=== PATIENT | female | born 1955 | race Caucasian/White ===

== ENCOUNTER 2017-05-01 11:29 | Emergency (ER) | payer OTHER, SELFPAY ==
[2017-05-01 11:53] LABS: #Eosinphils 0.1 thou/uL (0.0-0.7); #Lymphocytes 0.8 thou/uL (1.20-3.40); #Monocytes 0.4 thou/uL (0.11-0.59); #Neutrophils 3.8 thou/uL (1.40-6.50); %Basophils 0.9 % (0.0-1.0); %Eosinophils 2.1 % (0.0-10.0); %Lymphocytes 15.4 % (21.0-51.0); %Monocytes 8.1 % (0.0-10.0); %Neutrophils 73.4 % (42.0-75.0); Hemoglobin 14.2 g/dL (12.0-16.0); Mean Corpuscular HGB CONC 32.3 g/dL (32.0-36.0); Mean Corpuscular Hemoglobin 30.3 pg (27.0-31.0); Mean Corpuscular Volume 93.7 fl (81.0-99.0); Mean Platelet Volume 7.2 fL (7.4-10.4); Platelet Count 281 thou/uL (130-400); RBC Distribution Width 12.3 % (11.5-14.5); Red Blood Cell (RBC) Count 4.69 mill/uL (4.20-5.40); White Blood Cell (WBC) Count 5.2 thou/uL (4.8-10.8)
--- NOTE | 2017-05-01 12:10 | RAD ---
PORTABLE CHEST: HISTORY: Chest pain. FINDINGS: Heart size and mediastinum are within normal limits. The lungs are clear of infiltrates. No signifi cant bony findings. A small focus of calcification adjacent to the right humeral head is probably re lated to some calcific tendinitis. IMPRESSION: No active intrathoracic disease. POS: [facility]
[2017-05-01 12:16] LABS: ALT (SGPT) 14 U/L (8-55); AST (SGOT) 17 U/L (5-34); Albumin 4.2 g/dL (3.4-4.8); Alkaline Phosphatase 105 U/L (40-150); Anion Gap 10 mmol/L (10-20); BUN (Urea Nitrogen) 15 mg/dL (9.8-20.1); Bilirubin, Total 0.2 mg/dL (0.2-1.2); CK (CPK) 66 U/L (29-168); Calc. Creatinine Clearance 0 mL/min (70-130); Calcium 9.4 mg/dL (7.8-10.44); Carbon Dioxide 28 mmol/L (23-31); Chloride 103 mmol/L (98-107); Estimated GFR-MDRD 75; Globulin 2.3 g/dL (2.4-3.5); Glucose 90 mg/dL (80-115); Lipase 14 U/L (8-78); Potassium 4.2 mmol/L (3.5-5.1); Protein, Total 6.5 g/dL (6.0-8.3); Sodium 137 mmol/L (136-145)
[2017-05-01 12:23] LABS: CKMB 4.2 ng/mL (0-6.6); Troponin I Less than 0.010 ng/mL (< 0.028)
[2017-05-01] MEDS ORDERED: Acetaminophen 500 MG TAB ONE (13:09)
[2017-05-01 14:44] LABS: Troponin I Less than 0.010 ng/mL (< 0.028)
--- NOTE | 2017-05-01 15:08 | ULT ---
VENOUS DOPPLER ULTRASOUND OF THE RIGHT LOWER EXTREMITY: HISTORY: Right lower extremity pain and edema. TECHNIQUE: Perez scale ultrasound with color flow and spectral Doppler imaging of the deep venous system of the r ight lower extremity is performed. FINDINGS: There is good flow, compression, and augmentation noted in the right common femoral, femoral, deep fe moral, popliteal, posterior tibial and greater saphenous veins. IMPRESSION: No evidence of deep vein thrombosis in the right lower extremity. POS: [facility]
--- NOTE | 2017-05-04 17:34 | EKG ---
Test Reason : CHEST PAIN Blood Pressure : / mmHG Vent. Rate : 075 BPM Atrial Rate : 075 BPM P-R Int : 126 ms QRS Dur : 114 ms QT Int : 372 ms P-R-T Axes : 044 -15 056 degrees QTc Int : 415 ms Normal sinus rhythm RSR' or QR pattern in V1 suggests right ventricular conduction delay Minimal voltage criteria for LVH, may be normal variant Inferior infarct , age undetermined Abnormal ECG Confirmed by TRISTIAN WATERS, FINN ([id number]), newspaper or periodical editor DEENA PORTILLO ([id number]) on 05/04/2017 5:33:47 PM Referred By: Confirmed By:FINN LUBIN MD
== END 2017-05-01 15:44 | disposition home or self-care (01) ==
LOC: ERS 11:29
DX: R07.2 Precordial pain (principal); R60.0 Localized edema; G40.909 Epilepsy, unspecified, not intractable, without status epilepticus; F41.9 Anxiety disorder, unspecified; F32.9 Major depressive disorder, single episode, unspecified; Z79.899 Other long term (current) drug therapy
CPT/HCPCS: 36415; 71045; 80053; 82553; 83690; 84484; 85025; 93005; 94760

== ENCOUNTER 2018-08-03 11:38 | Inpatient (IN) | payer SELFPAY ==
[2018-08-03] MEDS ORDERED: Ondansetron PF 4 MG/2 ML Vial ONE (11:55)
[2018-08-03] MEDS ORDERED: Lorazepam 2 MG/ML VIAL ONE (11:55)
--- NOTE | 2018-08-03 12:08 | RAD ---
XR Chest 1 View History: Fever Comparison: Chest radiograph May 01, 2017 Findings: Lungs are clear. No pneumothorax or effusion. Cardiac silhouette and mediastinal contours a re within normal limits. Impression: No acute thoracic abnormality.
[2018-08-03 12:42] LABS: Bilirubin Negative (Negative); Blood, Urine Small (Negative); Clarity CLEAR (Clear); Glucose, Urine (Dipstick) Negative (Negative); Leukocyte Small (Negative); Nitrite Positive (Negative); Protein, Urine (Dipstick) Negative (Neg-Trace); Specific Gravity, Urine 1.012 (1.002-1.036); Urobilinogen 0.2 mg/dL (0.2-1.0)
[2018-08-03 12:45] LABS: Bacteria/HPF 4+ HPF (None Seen); Hyaline Casts/LPF 0-3 HYALINE CAST LPF (0-3 Hyaline); Pathc Cast-AUWi Flag 0.13 (0-2.49); Squamous Epithelial 0-3 HPF (0-3)
[2018-08-03 12:48] LABS: Band 26 % (5-11); Hemoglobin 14.1 g/dL (12.0-16.0); Lymphocytes 9 % (21-51); MDiff Complete? YES; Mean Corpuscular HGB CONC 33.4 g/dL (32.0-36.0); Mean Corpuscular Hemoglobin 30.3 pg (27.0-31.0); Mean Corpuscular Volume 90.8 fL (78.0-98.0); Mean Platelet Volume 7.3 fL (7.4-10.4); Neutrophil 65 % (42-75); Platelet Count 240 thou/uL (130-400); RBC Distribution Width 12.4 % (11.5-14.5); Red Blood Cell (RBC) Count 4.64 mill/uL (4.20-5.40); White Blood Cell (WBC) Count 6.8 thou/uL (4.8-10.8)
[2018-08-03 12:55] LABS: Anion Gap 17 mmol/L (10-20); BUN (Urea Nitrogen) 14 mg/dL (9.8-20.1); Calc. Creatinine Clearance 0 mL/min (70-130); Carbon Dioxide 22 mmol/L (23-31); Chloride 105 mmol/L (98-107); Estimated GFR-MDRD 67; Potassium 3.8 mmol/L (3.5-5.1); Sodium 140 mmol/L (136-145)
[2018-08-03 12:56] LABS: ALT (SGPT) 16 U/L (8-55); AST (SGOT) 17 U/L (5-34); Alkaline Phosphatase 136 U/L (40-150); Bilirubin, Total 0.5 mg/dL (0.2-1.2); CK (CPK) 49 U/L (29-168); Calcium 8.9 mg/dL (7.8-10.44); Globulin 2.1 g/dL (2.4-3.5); Glucose 107 mg/dL (80-115); Lipase 9 U/L (8-78); Protein, Total 6.1 g/dL (6.0-8.3)
[2018-08-03] MEDS ORDERED: Sodium Chloride 0.9% 1,000 ML IV SCH (13:00)
[2018-08-03] MEDS ORDERED: cefTRIAXone\\ROCEPHIN 1 GM VIAL ONE (13:01)
[2018-08-03] MEDS ORDERED: metroNIDAZOLE 500 MG/100 ML BAG ONE (14:55)
[2018-08-03 16:00] VITALS: BMI 27.8
[2018-08-03] MEDS ORDERED: hydrALAZINE 20 MG/ML VIAL SLOW IVP PRN (16:43)
[2018-08-03] MEDS ORDERED: Lorazepam 2 MG/ML VIAL SLOW IVP PRN (16:43)
[2018-08-03 16:53] LABS: Lactic Acid 1.6 mmol/L (0.5-2.2)
[2018-08-03] MEDS: Acetaminophen 325 MG TAB PO PRN ×2 (17:12→22:28)
[2018-08-03] MEDS: Sodium Chloride 0.9% 1,000 ML IV SCH (17:14)
[2018-08-03] MEDS: Famotidine 20 MG TAB PO SCH (20:21)
[2018-08-03] MEDS ORDERED: carBAMazepine 200 MG TAB PO SCH ×2 (21:00→21:15)
[2018-08-03] MEDS ORDERED: metroNIDAZOLE 500 MG in Premix Bag 1 BAG IVPB SCH (23:00)
--- NOTE | 2018-08-04 00:05 | HP ---
PRIMARY CARE PHYSICIAN: Through the [facility]. CHIEF COMPLAINT: Feeling bad and having fever. HISTORY OF PRESENT ILLNESS: Ms. Marvin is a pleasant 63-year-old female, who has a history of seizure disorder as well as allergic rhinitis. She was in her usual state of health until Saturday. She says she started feeling nauseated and was having some diarrhea off and on. During this time, she was not having any abdominal pain. She says that Saturday she kind of took it easy and just tried to stay at home and does not mention many symptoms on that day, but then on early Saturday morning and late Saturday night, she started having shivering and shaking all over. She said she felt really bad. She also started vomiting several times, but no hematemesis. She says that it was hard to breathe. It would hurt when she tried to breathe and she was breathing shallow. She also had a very bad headache and noticed pain in her back as well. For this reason, she went to the emergency room and she was found to be febrile with a temperature of 101. She also had quite a few bands on exam in her CBC and findings consistent with a urinary tract infection, and she is being admitted for UTI with sepsis. Currently, a lot of her symptoms have resolved. She admits having have urinary frequency, urgency, and some mild dysuria. REVIEW OF SYSTEMS: CONSTITUTIONAL: There has been subjective fever as well as chills, but no night sweats. No weight loss. HEENT: She has had some headache, but no visual changes. No sore throat or rhinorrhea. No neck pain. No adenopathy. PULMONARY: No hemoptysis. No cough. No wheezing. CARDIOVASCULAR: No chest pain. No shortness of breath. No PND. No orthopnea. GASTROINTESTINAL: As the history of present illness. GENITOURINARY: Also, as a history of present illness. MUSCULOSKELETAL: No muscle pains, weakness, or joint pains. NEUROLOGIC: No focal weakness or numbness. No seizures. PSYCHIATRIC: No symptoms of anxiety or depression. SKIN AND INTEGUMENT: No skin changes. No rash. ENDOCRINE: No heat or cold intolerance. PAST MEDICAL HISTORY: Significant for seizure disorder, generalized anxiety, allergic rhinitis, rectal prolapse, and she says she does not have a history of WPW or Khfne-Hjkgubxwo-Akyym syndrome; however, this is in her records. PAST SURGICAL HISTORY: She has had a bladder suspension surgery about 20 years ago, hysterectomy, history of a ruptured spleen, history of ear surgery, and thyroid nodule removal. ALLERGIES: NO KNOWN DRUG ALLERGIES. SOCIAL HISTORY: She is . She has 2 children. She is a nonsmoker and nondrinker. FAMILY HISTORY: Significant for seizure disorder in her father and sister. CURRENT MEDICATIONS: 1. Tegretol 200 mg twice daily as well as Celexa. 2. Aspirin 81 mg daily and she says she uses a laxative as needed. PHYSICAL EXAMINATION: GENERAL: She is alert and oriented. She appears to be in no acute distress. VITAL SIGNS: Blood pressure was 100/63, heart rate 99, respiratory rate of 18, and temperature is 98.5. HEENT: Pupils are equal, round, and reactive to light and accommodation. Throat, there is no erythema. No exudates. NECK: No adenopathy. No bruits. LUNGS: Clear to auscultation. There is no wheezing. No rales. No rhonchi. CARDIOVASCULAR: She has a normal S1 and S2. I did not appreciate an S3 or S4. No murmurs, clicks, or rubs. ABDOMEN: Soft. She did have some mild tenderness in the right lower quadrant. There is no rebound. No guarding. No organomegaly. EXTREMITIES: There is no clubbing or cyanosis. No edema. NEUROLOGIC: Her cranial nerves 2 through 12 are grossly intact. Her muscle strength is 5/5 in both upper and lower extremities. SKIN AND INTEGUMENT: No skin changes. No rash. LABORATORY DATA: Lab results: Her white blood cell count 6.8, hemoglobin 14.1, hematocrit is 42.1, and platelet count is 240. There are 26 bands. Sodium 140, potassium 3.8, chloride is 105, CO2 is 22, BUN of 14, creatinine 0.86, and glucose is 107. Lactic acid is 4.0. Urinalysis, nitrite positive and 4+ bacteria. ASSESSMENT: This is a 63-year-old female, who presents with fever, bandemia, elevated lactic acid, and urine findings suggestive of urinary tract infection. She has urosepsis: 1. For urinary tract infection with sepsis, she will be admitted to the medical floor, full admission due to her sepsis criteria, started on IV Rocephin and Levaquin, and we will follow up on her culture results and tailor antibiotics. We will also place her on IV fluid resuscitation. 2. Seizure disorder. We will continue Tegretol as well as p.r.n. Ativan and place her on seizure precautions. 3. Deep venous thrombosis and gastrointestinal prophylaxis, both will be provided. Job ID: [id number]
[2018-08-04] MEDS: Sodium Chloride 0.9% 1,000 ML IV SCH ×2 (04:54→18:37)
[2018-08-04] MEDS: Acetaminophen 325 MG TAB PO PRN ×2 (04:54→09:57)
[2018-08-04 05:29] LABS: #Lymphocytes 0.2 thou/uL (1.20-3.40); #Monocytes 0.1 thou/uL (0.11-0.59); #Neutrophils 6.1 thou/uL (1.40-6.50); %Eosinophils 0.1 % (0.0-10.0); %Lymphocytes 3.8 % (21.0-51.0); %Monocytes 1.7 % (0.0-10.0); %Neutrophils 94.4 % (42.0-75.0); Hemoglobin 11.5 g/dL (12.0-16.0); Mean Corpuscular HGB CONC 33.6 g/dL (32.0-36.0); Mean Corpuscular Hemoglobin 30.9 pg (27.0-31.0); Mean Corpuscular Volume 91.9 fL (78.0-98.0); Mean Platelet Volume 7.7 fL (7.4-10.4); Platelet Count 168 thou/uL (130-400); RBC Distribution Width 12.6 % (11.5-14.5); Red Blood Cell (RBC) Count 3.72 mill/uL (4.20-5.40); White Blood Cell (WBC) Count 6.4 thou/uL (4.8-10.8)
[2018-08-04 05:52] LABS: Anion Gap 9 mmol/L (10-20); BUN (Urea Nitrogen) 13 mg/dL (9.8-20.1); Calc. Creatinine Clearance 85 mL/min (70-130); Calcium 7.7 mg/dL (7.8-10.44); Carbon Dioxide 23 mmol/L (23-31); Chloride 109 mmol/L (98-107); Estimated GFR-MDRD 68; Glucose 108 mg/dL (80-115); Potassium 3.8 mmol/L (3.5-5.1); Sodium 137 mmol/L (136-145)
[2018-08-04] MEDS: Enoxaparin Sodium 40 MG/0.4 ML SYRINGE SC SCH (08:06)
[2018-08-04] MEDS: Famotidine 20 MG TAB PO SCH ×2 (08:06→20:34)
[2018-08-04] MEDS: carBAMazepine 200 MG TAB PO SCH ×2 (08:06→16:42)
[2018-08-04] MEDS: cefTRIAXone\\ROCEPHIN 1 GM in Sodium Chloride 0.9% 100 ML IVPB SCH (12:03)
--- NOTE | 2018-08-04 15:55 | PDOC.PN ---
- Subjective Encounter Start Date: 08/04/18 Encounter Start Time: 14:30 Ms. Marvin was seen today in follow-up of UTI with sepsis. She has continued to have fever off and on, once as high as 102. She does not appear toxic. She does not ahve amny new complaints. - Objective Resuscitation Status - Order Detail: 08/03/18 16:39 Resuscitation Status Routine Resuscitation Status: FULL: Full Resuscitation MAR Reviewed: Yes Vital Signs & Weight: Vital Signs (12 hours) Temp Pulse Resp BP Pulse Ox 08/04/18 14:31 98.6 F 08/04/18 11:46 102.7 F H 84 20 110/58 L 99 08/04/18 11:01 102 F H 08/04/18 09:55 100.1 F H 08/04/18 08:06 100 08/04/18 08:00 99.3 F 73 18 112/68 100 08/04/18 04:00 99.6 F 92 20 116/73 96 Weight Admit Weight 172 lb 5 oz Weight 172 lb 5 oz I&O: 08/03/18 08/04/18 08/05/18 06:59 06:59 06:59 Intake Total 240 Balance 240 Result Diagrams: 08/04/18 04:15 08/04/18 04:15 Phys Exam - Physical Examination HEENT: PERRLA Respiratory: no wheezing, no rales, no rhonchi, clear to auscultation bilateral Cardiovascular: RRR, no significant murmur, no rub Gastrointestinal: soft, non-tender, no distention, positive bowel sounds Musculoskeletal: no edema, pulses present Dx/Plan (1) UTI (urinary tract infection) Status: Acute (2) Sepsis Code(s): A41.9 - SEPSIS, UNSPECIFIED ORGANISM Status: Acute (3) Seizure disorder Code(s): G40.909 - EPILEPSY, UNSP, NOT INTRACTABLE, WITHOUT STATUS EPILEPTICUS Status: Suspected Comment: No specific seizure activity noted, pt with shaking episode alert and responding during the entire episode - Plan * UTI with sepsis- continue Rocephin and Levaquin * Urine and blood cultures are pending * Flu- screen was negative * Seizure disorder- stable.
[2018-08-04] MEDS ORDERED: Gentamicin Sulfate 330 MG in Sodium Chloride 0.9% 100 ML IVPB SCH (17:45)
[2018-08-05 06:03] LABS: #Lymphocytes 0.4 thou/uL (1.20-3.40); #Monocytes 0.4 thou/uL (0.11-0.59); %Basophils 0.7 % (0.0-1.0); %Eosinophils 1.2 % (0.0-10.0); %Lymphocytes 14.9 % (21.0-51.0); %Monocytes 12.4 % (0.0-10.0); %Neutrophils 70.8 % (42.0-75.0); Hemoglobin 11.2 g/dL (12.0-16.0); Mean Corpuscular HGB CONC 33.5 g/dL (32.0-36.0); Mean Corpuscular Hemoglobin 30.8 pg (27.0-31.0); Mean Corpuscular Volume 91.9 fL (78.0-98.0); Mean Platelet Volume 7.6 fL (7.4-10.4); Platelet Count 132 thou/uL (130-400); RBC Distribution Width 12.6 % (11.5-14.5); Red Blood Cell (RBC) Count 3.62 mill/uL (4.20-5.40); White Blood Cell (WBC) Count 2.9 thou/uL (4.8-10.8)
[2018-08-05 06:25] LABS: Anion Gap 10 mmol/L (10-20); BUN (Urea Nitrogen) 11 mg/dL (9.8-20.1); Calc. Creatinine Clearance 90 mL/min (70-130); Calcium 7.8 mg/dL (7.8-10.44); Carbon Dioxide 21 mmol/L (23-31); Chloride 111 mmol/L (98-107); Estimated GFR-MDRD 73; Glucose 105 mg/dL (80-115); Potassium 3.6 mmol/L (3.5-5.1); Sodium 138 mmol/L (136-145)
[2018-08-05] MEDS: Enoxaparin Sodium 40 MG/0.4 ML SYRINGE SC SCH (08:25)
[2018-08-05] MEDS: Sodium Chloride 0.9% 1,000 ML IV SCH ×2 (08:25→20:42)
[2018-08-05] MEDS: Famotidine 20 MG TAB PO SCH ×2 (08:26→20:40)
[2018-08-05] MEDS: carBAMazepine 200 MG TAB PO SCH ×2 (08:26→16:48)
[2018-08-05] MEDS: cefTRIAXone\\ROCEPHIN 1 GM in Sodium Chloride 0.9% 100 ML IVPB SCH (12:23)
[2018-08-05] MEDS: MEROPENEM 1 GM/50 ML 1 GM in Premix Bag 1 BAG IVPB SCH ×2 (12:59→20:40)
[2018-08-05] MEDS ORDERED: Meropenem 1 GM in Sodium Chloride 0.9% 100 ML IVPB SCH (14:00)
--- NOTE | 2018-08-05 14:47 | PDOC.PN ---
- Subjective Encounter Start Date: 08/05/18 Encounter Start Time: 14:47 Ms. Marvin was seen today in follow-up of UTI with sepsis. She says she feels much better today - Objective Resuscitation Status - Order Detail: 08/03/18 16:39 Resuscitation Status Routine Resuscitation Status: FULL: Full Resuscitation MAR Reviewed: Yes Vital Signs & Weight: Vital Signs (12 hours) Temp Pulse Resp BP Pulse Ox 08/05/18 12:15 98.0 F 81 18 135/75 96 08/05/18 08:26 95 08/05/18 07:47 98.2 F 68 16 119/73 95 08/05/18 04:00 98.3 F 67 18 131/79 94 L Weight Admit Weight 172 lb 5 oz Weight 172 lb 5 oz I&O: 08/04/18 08/05/18 08/06/18 06:59 06:59 06:59 Intake Total 240 1328 Balance 240 1328 Result Diagrams: 08/05/18 05:22 08/05/18 05:22 Phys Exam - Physical Examination HEENT: PERRLA Respiratory: no wheezing, no rales, no rhonchi, clear to auscultation bilateral Cardiovascular: RRR, no significant murmur, no rub Gastrointestinal: soft, non-tender, no distention, positive bowel sounds Musculoskeletal: no edema, pulses present, edema present Dx/Plan (1) UTI (urinary tract infection) Status: Acute (2) Sepsis Code(s): A41.9 - SEPSIS, UNSPECIFIED ORGANISM Status: Acute (3) Seizure disorder Code(s): G40.909 - EPILEPSY, UNSP, NOT INTRACTABLE, WITHOUT STATUS EPILEPTICUS Status: Suspected Comment: No specific seizure activity noted, pt with shaking episode alert and responding during the entire episode - Plan * UTI with sepsis- blood culture is growing E. Coli which appears to be ESBL. 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 Will change her antibiotics to Meropenem and consult ID * Urine culture- I suspect this is the same organism * Seizure disorder- stable.
--- NOTE | 2018-08-05 18:58 | ULT ---
US Renal Bilateral STANDARD: 08/05/2018 5:11 PM CLINICAL HISTORY: Pyelonephritis and bacteremia. STUDY: Renal ultrasound COMPARISON: None. FINDINGS: Right kidney: Echogenicity: Normal. Masses/cysts: 5.4 cm cyst Hydronephrosis: None. Calcifications: None. Length: 10.4 cm Left kidney: Echogenicity: Normal. Masses/cysts: 2.0 cm cyst Hydronephrosis: None. Calcifications: None. Length: 9.1 cm Limited visualization of the urinary bladder is unremarkable. Bilateral ureteral jets are present. IMPRESSION: Bilateral renal cysts
--- NOTE | 2018-08-05 23:17 | CON ---
DATE OF CONSULTATION: 08/05/2018 REASON FOR CONSULTATION: Bacteremia. HISTORY OF PRESENT ILLNESS: 63-year-old with history of seizure activity, on Tegretol, who was well until Saturday when she noticed general malaise, lower abdominal pain, and marked increase in urinary frequency associated with chills. She then developed some dyspnea and headaches, was admitted. On arrival, temperature was 101.3 and she appeared anxious. The lungs and heart examination were normal. The abdomen was described as nontender. Skin was normal. Initial white cell count 6.8 with 26% bands. Chemistry was normal otherwise. Urinalysis with 4 to 6 wbc's and 4+ bacteria. Now, we have one set of blood cultures with E. coli and the organism appears to be an ESBL type of organism. Urine culture has a gram-negative yo, yet to be identified and susceptibility tested. Currently, she is looking well, appears in no distress. No headaches or visual symptoms, sore throat, odynophagia, or dysphagia. No shortness of breath. No abdominal pain anymore. No joint symptoms. 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 Not clear if she had a splenectomy or not. She has had a hysterectomy. ALLERGIES: NONE. SOCIAL HISTORY: , 2 children. Never smoker. Does not drink alcoholic beverages. FAMILY HISTORY: Seizure disorder. CURRENT MEDICATIONS: 1. Tylenol. 2. Tegretol. 3. Lovenox. 4. Pepcid. 5. Alprazolam. 6. Ativan. 7. Meropenem. PHYSICAL EXAMINATION: VITAL SIGNS: T-max 102.7. She has been afebrile since. BP 130/70, pulse 81, respirations 18, O2 saturation 96. SKIN: Normal peripheral IV access. She is voiding in the toilet. No lymphadenopathy. HEENT: Ocular movements conjugate. Sclerae white. Pupils are equal. Oral cavity normal. NECK: Supple. No jugular vein distention. LUNGS: Clear to auscultation and percussion. HEART: S1, S2. Regular rate. No S3 or S4. ABDOMEN: Soft, not distended. Question of bladder distention. No joint inflammatory activity. NEUROLOGIC: Nonfocal. Awake, alert, oriented, follows commands. LABORATORY DATA: White cell count is down to 2.9, hemoglobin 11.2, platelets 132 with 70% neutrophils. Sodium 138, creatinine 0.8. ASSESSMENT: 1. History of seizure disorder. 2. Pelvic floor insufficiency with rectal prolapse, bladder prolapse, and prior hysterectomy. 3. Likely invasive urinary tract infection with bacteremia, possible pyelonephritis. May have urinary retention. 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 This is usually secondary to urinary retention. Anytime the patient has more than 30 mL in the postvoid residual volumes, there is an associated increase in rates of UTIs. We will check a postvoid residual and check an ultrasound of her kidneys as well. She will need continuation of treatment at least for 10 days with IV antimicrobial therapy. Further intervention may be needed depending on findings in the postvoid residual ultrasound. The patient has not been sexually active in past many years, so I do not think there would be any other risk factor to address. Job ID: [id number] [facility]
[2018-08-06] MEDS: MEROPENEM 1 GM/50 ML 1 GM in Premix Bag 1 BAG IVPB SCH (05:46)
[2018-08-06] MEDS: Famotidine 20 MG TAB PO SCH ×2 (09:00→19:46)
[2018-08-06] MEDS: carBAMazepine 200 MG TAB PO SCH ×2 (09:00→17:40)
[2018-08-06] MEDS: Enoxaparin Sodium 40 MG/0.4 ML SYRINGE SC SCH (09:01)
[2018-08-06] MEDS ORDERED: Ondansetron PF 4 MG/2 ML Vial IVP PRN (13:01)
[2018-08-06] MEDS: Sodium Chloride 0.9% 1,000 ML IV SCH (13:33)
--- NOTE | 2018-08-06 18:33 | PDOC.PN ---
- Subjective Encounter Start Date: 08/06/18 Encounter Start Time: 18:25 Subjective: f/u for sepsis due to UTI with ESBL E. coli on Levaquin previously -: tx with Meropenem. - Objective Resuscitation Status - Order Detail: 08/03/18 16:39 Resuscitation Status Routine Resuscitation Status: FULL: Full Resuscitation MAR Reviewed: Yes Vital Signs & Weight: Vital Signs (12 hours) Temp Pulse Resp BP Pulse Ox 08/06/18 12:55 98.3 F 82 18 149/80 H 98 08/06/18 09:06 98 08/06/18 07:55 98.0 F 66 16 122/74 98 Weight Admit Weight 172 lb 5 oz Weight 172 lb 5 oz I&O: 08/05/18 08/06/18 08/07/18 06:59 06:59 06:59 Intake Total 1328 1204 1820 Balance 1328 1204 1820 Result Diagrams: 08/05/18 05:22 08/05/18 05:22 Additional Labs: Microbiology 08/04/18 14:00 Nasal swab Influenza Types A,B Direct EIA - Final 08/03/18 12:20 Venous blood - Right Hand Blood Culture - Final Escherichia coli 08/03/18 12:05 Urine clean catch Urine Culture - Final Escherichia coli 08/03/18 12:11 Venous blood - Left Arm Blood Culture - Preliminary NO GROWTH AT 48 HOURS Laboratory Tests 06/03/16 06/03/16 06/04/16 15:01 20:28 04:20 Phenytoin 35.3 H* 24.2 H 27.8 H 06/04/16 06/04/16 09:23 15:52 Phenytoin 24.8 H 25.6 H Radiology Reviewed by me: Yes (Renal sono - bilat cysts) Phys Exam - Physical Examination Constitutional: NAD HEENT: PERRLA, sclera anicteric, oral pharynx no lesions Neck: no nodes, no JVD, supple, full ROM Respiratory: no wheezing, no rales, no rhonchi, clear to auscultation bilateral S1, S2 Cardiovascular: RRR, no significant murmur, no rub, gallop Gastrointestinal: soft, non-tender, no distention, positive bowel sounds Musculoskeletal: no edema, pulses present Neurological: normal sensation, moves all 4 limbs Psychiatric: A&O x 3 Skin: normal turgor, cap refill <2 seconds Dx/Plan (1) Sepsis Code(s): A41.9 - SEPSIS, UNSPECIFIED ORGANISM Status: Acute Comment: Secondary to #2, continue Levaquin (2) UTI (urinary tract infection) Status: Acute Comment: E. coli with ESBL, continue Levaquin (3) Seizure disorder Code(s): G40.909 - EPILEPSY, UNSP, NOT INTRACTABLE, WITHOUT STATUS EPILEPTICUS Status: Chronic Comment: Continue Tegretol (4) Depression Code(s): F32.9 - MAJOR DEPRESSIVE DISORDER, SINGLE EPISODE, UNSPECIFIED Status : Chronic Comment: Resume Citalopram - Plan continue antibiotics, out of bed/ambulate, DVT proph w/SCDs Stable overall -: Continue Levaquin 750mg daily -: Saline lock IVF's -: OOB/ambulate -: AM lab: CBC with diff * Home in am 08/07/18
[2018-08-07 01:40] VITALS: TEMP 98.2
[2018-08-07 06:35] LABS: Hemoglobin 12.9 g/dL (12.0-16.0); Mean Corpuscular HGB CONC 34.1 g/dL (32.0-36.0); Mean Corpuscular Hemoglobin 31.1 pg (27.0-31.0); Mean Corpuscular Volume 91.3 fL (78.0-98.0); Mean Platelet Volume 8.3 fL (7.4-10.4); Platelet Count 186 thou/uL (130-400); RBC Distribution Width 12.7 % (11.5-14.5); Red Blood Cell (RBC) Count 4.15 mill/uL (4.20-5.40); White Blood Cell (WBC) Count 3.8 thou/uL (4.8-10.8)
[2018-08-07] MEDS: carBAMazepine 200 MG TAB PO SCH (08:02)
[2018-08-07] MEDS: Famotidine 20 MG TAB PO SCH (08:02)
[2018-08-07] MEDS: Enoxaparin Sodium 40 MG/0.4 ML SYRINGE SC SCH (08:02)
[2018-08-07 08:50] LABS: Band 4 % (5-11); Eosinophils 6 % (0-10); Lymphocytes 24 % (21-51); MDiff Complete? YES; Monocytes 15 % (0-10); Neutrophil 51 % (42-75); RBC Morphology Normal
[2018-08-07] MEDS ORDERED: Citalopram 20 MG TAB PO SCH (09:00)
[2018-08-07] MEDS ORDERED: Aspirin 81 mg Enteric Coated Tablet PO SCH (09:00)
--- NOTE | 2018-08-07 10:38 | DIS ---
DATE OF ADMISSION: 08/03/2018 DATE OF DISCHARGE: 08/07/2018 DISCHARGE DIAGNOSES: 1. Sepsis secondary to urinary tract infection with Escherichia coli species. 2. Escherichia coli urinary tract infection with extended-spectrum beta-lactamase activity. 3. Seizure disorder, stable. 4. Depression, stable. CONSULTATIONS: Dr. Fidel Nguyen with Infectious Disease Service. PERTINENT LABORATORY AND X-RAY FINDINGS: Lactic acid level ranged between 1.6 to 4.0. CBC showed a white blood cell count ranging between 2.9 to 6.8, hemoglobin ranged between 11.2 to 14.1. Urine culture dated 08/03/2018, showed greater than 100,000 colonies of E coli with extended-spectrum beta-lactamase activity. Blood culture 1/2 positive on , for E coli species with extended-spectrum beta-lactamase activity. Influenza A and B antigen dated 08/04/2018, negative. Portable chest x-ray dated 08/03/2018, showed no acute cardiopulmonary process. HOSPITAL COURSE: The patient was initially admitted to the medical floor after presenting with general malaise and fever. The patient underwent evaluation including urinalysis suspicious for infectious process. Urine culture did reveal E coli species as well as 1/2 blood cultures positive for E coli with extended-spectrum beta-lactamase resistance. The patient was placed on meropenem and evaluated by the Infectious Disease Service. The patient underwent renal ultrasound on 08/05/2018, showing bilateral renal cysts without evidence for obstructive process. The patient was transitioned to oral Levaquin at the direction of the Infectious Disease Service with recommendations to complete antibiotic coverage on an outpatient basis with Levaquin. The patient clinically stabilized with antibiotic therapy and overall remained clinically stable. I have examined the patient at the time of discharge and discussed followup instructions. The patient verbalized understanding and in agreement, ready for discharge on 08/07/2018. DISCHARGE MEDICATIONS: 1. Enteric-coated aspirin 81 mg p.o. daily. 2. Tegretol 200 mg p.o. b.i.d. 3. Citalopram 40 mg p.o. daily. 4. Levaquin 750 mg p.o. daily x7 days. FOLLOWUP: The patient may follow up with her primary care provider at [facility] within 7 days of discharge. CONDITION ON DISCHARGE: Stable. ACTIVITY: Ad-syed. DIET: Heart healthy. CODE STATUS: Full. DISPOSITION: To home on 08/07/2018. Job ID: [id number]
[2018-08-07 10:45] VITALS: BP 128/83
--- NOTE | 2018-08-08 21:36 | EKG ---
Test Reason : DIFFICULTY BREATHING Blood Pressure : / mmHG Vent. Rate : 108 BPM Atrial Rate : 108 BPM P-R Int : 128 ms QRS Dur : 082 ms QT Int : 360 ms P-R-T Axes : 044 077 -04 degrees QTc Int : 482 ms Sinus tachycardia Possible Left atrial enlargement T wave abnormality, consider inferior ischemia Abnormal ECG Confirmed by Roderick COLES ([id number]) on 08/08/2018 9:36:33 PM Referred By: Confirmed By:Roderick COLES
== END 2018-08-07 11:16 | disposition home or self-care (01) | DRG 872 ==
LOC: ERS 11:38 → T4-B 13:41
PROVIDERS: ADMIT Internal Medicine; ATTEND Internal Medicine
DX: A41.51 Sepsis due to Escherichia coli [E. coli] (principal); N39.0 Urinary tract infection, site not specified; G40.909 Epilepsy, unspecified, not intractable, without status epilepticus; F41.1 Generalized anxiety disorder; F32.9 Major depressive disorder, single episode, unspecified; Z16.12 Extended spectrum beta lactamase (ESBL) resistance; J30.9 Allergic rhinitis, unspecified; Z79.82 Long term (current) use of aspirin; Z79.899 Other long term (current) drug therapy
CPT/HCPCS: 36415; 71045; 76770; 80048; 80053; 81003; 81015; 82550; 83605; 83690; 84484; 85007; 85025; 85027; 87040; 87077; 87086; 87149; 87186; 87804; 93005; 96361; 96365; 96367; 96375; J0696; J1580; J1650; J1956; J2060; J2185; J2405; J3490

== ENCOUNTER 2019-03-14 08:38 | Emergency (ER) | payer SELFPAY ==
[2019-03-14] MEDS ORDERED: Ketorolac Tromethamine 30 MG/ML VIAL ONE (09:19)
== END 2019-03-14 10:02 | disposition home or self-care (01) ==
LOC: ERS 08:38
DX: M54.5 Low back pain (principal); G40.909 Epilepsy, unspecified, not intractable, without status epilepticus; F41.9 Anxiety disorder, unspecified; F32.9 Major depressive disorder, single episode, unspecified; Z79.899 Other long term (current) drug therapy
CPT/HCPCS: 96372; 99283; J1885

== ENCOUNTER 2019-09-14 12:52 | Emergency (ER) | payer OTHER, SELFPAY ==
[2019-09-14 13:30] LABS: #Basophils 0.1 thou/uL (0.0-0.2); #Eosinphils 0.1 thou/uL (0.0-0.7); #Lymphocytes 0.4 thou/uL (1.20-3.40); #Monocytes 0.4 thou/uL (0.11-0.59); #Neutrophils 2.5 thou/uL (1.40-6.50); %Basophils 1.5 % (0.0-1.0); %Eosinophils 2.4 % (0.0-10.0); %Lymphocytes 12.6 % (21.0-51.0); %Neutrophils 72.5 % (42.0-75.0); Hemoglobin 14.3 g/dL (12.0-16.0); Mean Corpuscular HGB CONC 33.7 g/dL (32.0-36.0); Mean Corpuscular Volume 92.1 fL (78.0-98.0); Mean Platelet Volume 7.1 fL (7.4-10.4); Platelet Count 231 thou/uL (130-400); Red Blood Cell (RBC) Count 4.62 mill/uL (4.20-5.40); White Blood Cell (WBC) Count 3.5 thou/uL (4.8-10.8)
[2019-09-14 13:53] LABS: ALT (SGPT) 15 U/L (8-55); AST (SGOT) 18 U/L (5-34); Alkaline Phosphatase 115 U/L (40-110); Anion Gap 13 mmol/L (10-20); BUN (Urea Nitrogen) 11 mg/dL (9.8-20.1); Bilirubin, Total Less than 0.2 mg/dL (0.2-1.2); Calc. Creatinine Clearance 0 mL/min (70-130); Calcium 8.5 mg/dL (7.8-10.44); Carbon Dioxide 26 mmol/L (23-31); Chloride 106 mmol/L (98-107); Estimated GFR-MDRD 64; Globulin 2.3 g/dL (2.4-3.5); Glucose 107 mg/dL (80-115); Lipase 11 U/L (8-78); Protein, Total 6.3 g/dL (6.0-8.3); Sodium 141 mmol/L (136-145)
[2019-09-14] MEDS ORDERED: Aspirin Chewable 81 MG TAB ONE (13:56)
[2019-09-14] MEDS ORDERED: Ondansetron ODT 4 MG TAB ONE (13:56)
[2019-09-14] MEDS ORDERED: Acetaminophen 500 MG TAB ONE (13:56)
--- NOTE | 2019-09-14 14:16 | RAD ---
PORTABLE CHEST: Date: 09/14/2019 HISTORY: Chest pain and shortness of breath. COMPARISON: 05/01/2017. FINDINGS: Lungs appear clear. No infiltrate or vascular congestion. Heart size normal. IMPRESSION: No acute lung process. POS: [facility]
[2019-09-15 14:38] LABS: SARS-CoV-2 MS2 Positive; SARS-CoV-2 N Gene Positive; SARS-CoV-2 S Gene Positive; SARS-CoV-2 orf1ab Positive
== END 2019-09-14 15:05 | disposition home or self-care (01) ==
LOC: ERS 12:52
DX: U07.1 COVID-19 (principal); R07.9 Chest pain, unspecified; G40.909 Epilepsy, unspecified, not intractable, without status epilepticus; F41.9 Anxiety disorder, unspecified; F32.9 Major depressive disorder, single episode, unspecified; Z79.899 Other long term (current) drug therapy
CPT/HCPCS: 36415; 71045; 80053; 83605; 83690; 84484; 85025; 87635; 93005; 94760; Q0162; U0003

== ENCOUNTER 2019-10-28 10:03 | Emergency (ER) | payer SELFPAY ==
[2019-10-28 11:54] LABS: Bacteria/HPF 4+ HPF (None Seen); Bilirubin Negative (Negative); Blood, Urine Negative (Negative); Clarity Clear (Clear); Glucose, Urine (Dipstick) Normal (Negative); Ketone, Urine Negative (Negative); Leukocyte 75 Leu/uL (Negative); Nitrite Negative (Negative); Protein, Urine (Dipstick) Negative (Neg-Trace); RBC/HPF 0-3 HPF (0-3); Specific Gravity, Urine 1.015 (1.002-1.036); Squamous Epithelial 0-3 HPF (0-3); Urobilinogen Normal mg/dL (Less than 2); WBC/HPF 0-3 HPF (0-3)
[2019-10-28] MEDS ORDERED: Ketorolac Tromethamine 30 MG/ML VIAL ONE (12:08)
[2019-10-28] MEDS ORDERED: Diazepam 5 MG TAB ONE (12:08)
== END 2019-10-28 12:37 | disposition home or self-care (01) ==
LOC: ERS 10:03
DX: M54.5 Low back pain (principal); G40.909 Epilepsy, unspecified, not intractable, without status epilepticus; F41.9 Anxiety disorder, unspecified; F32.9 Major depressive disorder, single episode, unspecified; Z79.899 Other long term (current) drug therapy; X50.0XXA Overexertion from strenuous movement or load, initial encounter
CPT/HCPCS: 81003; 81015; 96372; 99283; J1885

== ENCOUNTER 2021-09-27 09:25 | Inpatient (IN) | payer OTHER, SELFPAY ==
[2021-09-27 10:28] LABS: #Eosinphils 0.1 thou/uL (0.0-0.7); #Lymphocytes 1.4 thou/uL (1.20-3.40); #Monocytes 0.5 thou/uL (0.11-0.59); #Neutrophils 3.7 thou/uL (1.40-6.50); %Basophils 0.5 % (0.0-1.0); %Eosinophils 2.3 % (0.0-10.0); %Lymphocytes 24.1 % (21.0-51.0); %Monocytes 8.2 % (0.0-10.0); Hemoglobin 14.2 g/dL (12.0-16.0); Mean Corpuscular Hemoglobin 28.5 pg (27.0-31.0); Platelet Count 295 thou/uL (130-400); RBC Distribution Width 13.1 % (11.5-14.5); Red Blood Cell (RBC) Count 4.97 mill/uL (4.20-5.40); White Blood Cell (WBC) Count 5.6 thou/uL (4.8-10.8)
[2021-09-27 11:47] LABS: ALT (SGPT) 10 U/L (8-55); AST (SGOT) 14 U/L (5-34); Albumin 3.6 g/dL (3.4-4.8); Alkaline Phosphatase 82 U/L (40-110); Anion Gap 11 mmol/L (10-20); BUN (Urea Nitrogen) 17 mg/dL (9.8-20.1); Bilirubin, Total 0.4 mg/dL (0.2-1.2); Calc. Creatinine Clearance 0 mL/min (70-130); Calcium 8.7 mg/dL (7.8-10.44); Carbon Dioxide 26 mmol/L (23-31); Chloride 108 mmol/L (98-107); Estimated GFR 83; Globulin 2.4 g/dL (2.4-3.5); Glucose 94 mg/dL (80-115); Lipase 12 U/L (8-78); Magnesium 2.1 mg/dL (1.6-2.6); Potassium 4.1 mmol/L (3.5-5.1); Sodium 141 mmol/L (136-145)
[2021-09-27] MEDS ORDERED: Aspirin Chewable 81 MG TAB ONE (12:44)
[2021-09-27 14:03] LABS: Troponin I 0.058 ng/mL (< 0.028)
[2021-09-27] MEDS ORDERED: Communication Order-Pharmacy FS PRN (15:45)
[2021-09-27 16:27] LABS: Troponin I 0.066 ng/mL (< 0.028)
[2021-09-27 18:56] LABS: SARS-CoV-2 NAA Rapid Test Not Detected (NotDetected)
[2021-09-27] MEDS: carBAMazepine 200 MG TAB PO SCH (20:22)
[2021-09-27] MEDS: Metoprolol Tartrate 25 MG TAB PO SCH (20:22)
[2021-09-27] MEDS ORDERED: Heparin 5,000 UNITS/ML VIAL SC SCH (21:00)
[2021-09-28] MEDS ORDERED: Ondansetron PF 4 MG/2 ML Vial IVP PRN (00:03)
[2021-09-28] MEDS: Ondansetron ODT 4 MG TAB PO PRN ×2 (00:25→06:34)
[2021-09-28 04:54] LABS: Cardiac Risk 3.4 (Less than 4.5)
[2021-09-28] MEDS: carBAMazepine 200 MG TAB PO SCH ×2 (05:04→20:32)
[2021-09-28] MEDS: Metoprolol Tartrate 25 MG TAB PO SCH ×2 (05:04→20:31)
[2021-09-28] MEDS: Citalopram 20 MG TAB PO SCH (05:04)
[2021-09-28] MEDS: Aspirin Chewable 81 MG TAB PO SCH (05:04)
[2021-09-28] MEDS ORDERED: Sodium Chloride 0.9% 1,000 ML IV SCH ×2 (06:00→10:46)
[2021-09-28] MEDS ORDERED: Heparin 10,000 UNITS/ 10 ML VIAL ONE (08:53)
[2021-09-28] MEDS ORDERED: Bivalirudin 250 MG VIAL ONE ×2 (08:53→11:13)
[2021-09-28] MEDS ORDERED: Lidocaine 1% (PF) 30 ML VIAL ONE (08:54)
[2021-09-28] MEDS ORDERED: Midazolam HCl 2 mg/2 ml Vial ONE (09:38)
[2021-09-28] MEDS ORDERED: Fentanyl 100 MCG/2 ML VIAL ONE (09:39)
[2021-09-28] MEDS ORDERED: Nitroglycerin 50 MG/250 ML BOT 250 ML ONE (10:19)
[2021-09-28] MEDS ORDERED: Ondansetron PF 4 MG/2 ML Vial ONE (10:20)
[2021-09-28] MEDS ORDERED: Protamine Sulfate 50 MG/5 ML VIAL ONE (10:29)
[2021-09-28] MEDS ORDERED: Acetaminophen/Codeine 30-300mg Tablet PO PRN ×2 (10:44)
[2021-09-28] MEDS ORDERED: Sodium Chloride 0.9% 200 ML IV PRN (10:44)
[2021-09-28] MEDS ORDERED: Nitroglycerin 0.4 MG TAB (25 Tab Bottle) SL PRN (10:44)
[2021-09-28] MEDS: Atorvastatin Calcium 40 MG TAB PO SCH (20:32)
[2021-09-29 07:01] LABS: #Eosinphils 0.1 thou/uL (0.0-0.7); #Lymphocytes 0.9 thou/uL (1.20-3.40); #Monocytes 0.4 thou/uL (0.11-0.59); %Basophils 0.1 % (0.0-1.0); %Eosinophils 1.8 % (0.0-10.0); %Lymphocytes 13.3 % (21.0-51.0); %Monocytes 6.6 % (0.0-10.0); %Neutrophils 78.1 % (42.0-75.0); Hemoglobin 12.8 g/dL (12.0-16.0); Mean Corpuscular HGB CONC 32.4 g/dL (32.0-36.0); Mean Corpuscular Hemoglobin 29.1 pg (27.0-31.0); Mean Corpuscular Volume 89.9 fL (78.0-98.0); Mean Platelet Volume 7.6 fL (7.4-10.4); Platelet Count 229 thou/uL (130-400); RBC Distribution Width 13.1 % (11.5-14.5); Red Blood Cell (RBC) Count 4.38 mill/uL (4.20-5.40); White Blood Cell (WBC) Count 6.4 thou/uL (4.8-10.8)
[2021-09-29 07:19] LABS: Anion Gap 10 mmol/L (10-20); BUN (Urea Nitrogen) 10 mg/dL (9.8-20.1); Calc. Creatinine Clearance 85 mL/min (70-130); Calcium 8.1 mg/dL (7.8-10.44); Carbon Dioxide 26 mmol/L (23-31); Chloride 108 mmol/L (98-107); Estimated GFR 84; Glucose 96 mg/dL (80-115); Potassium 3.8 mmol/L (3.5-5.1); Sodium 140 mmol/L (136-145)
[2021-09-29] MEDS: Citalopram 20 MG TAB PO SCH (09:01)
[2021-09-29] MEDS: Aspirin Chewable 81 MG TAB PO SCH (09:02)
[2021-09-29] MEDS: carBAMazepine 200 MG TAB PO SCH ×2 (09:02→20:43)
[2021-09-29] MEDS: Metoprolol Tartrate 25 MG TAB PO SCH ×2 (09:02→20:43)
[2021-09-29] MEDS ORDERED: Methocarbamol 500 MG TAB PO PRN (14:57)
[2021-09-29] MEDS: Atorvastatin Calcium 40 MG TAB PO SCH (20:43)
[2021-09-29 20:51] LABS: ALT (SGPT) 12 U/L (8-55); AST (SGOT) 15 U/L (5-34); Albumin 3.6 g/dL (3.4-4.8); Alkaline Phosphatase 86 U/L (40-110); Anion Gap 10 mmol/L (10-20); BUN (Urea Nitrogen) 16 mg/dL (9.8-20.1); Bilirubin, Total 0.2 mg/dL (0.2-1.2); Calc. Creatinine Clearance 76 mL/min (70-130); Calcium 8.2 mg/dL (7.8-10.44); Carbon Dioxide 28 mmol/L (23-31); Chloride 106 mmol/L (98-107); Estimated GFR 74; Globulin 2.5 g/dL (2.4-3.5); Glucose 119 mg/dL (80-115); Magnesium 2.1 mg/dL (1.6-2.6); Potassium 3.9 mmol/L (3.5-5.1); Protein, Total 6.1 g/dL (5.8-8.1); Sodium 140 mmol/L (136-145)
[2021-09-29 20:55] LABS: Troponin I 0.048 ng/mL (< 0.028)
[2021-09-30] MEDS: Metoprolol Tartrate 25 MG TAB PO SCH ×2 (10:03→20:22)
[2021-09-30] MEDS: carBAMazepine 200 MG TAB PO SCH ×2 (10:04→20:54)
[2021-09-30] MEDS: Citalopram 20 MG TAB PO SCH (10:04)
[2021-09-30] MEDS: Aspirin Chewable 81 MG TAB PO SCH (10:04)
[2021-09-30] MEDS ORDERED: Electrolyte Replacement Protocol 1 EACH FS SCH (16:08)
[2021-09-30] MEDS: Famotidine 20 MG TAB PO SCH (20:22)
[2021-09-30] MEDS: Atorvastatin Calcium 40 MG TAB PO SCH (20:23)
[2021-10-01 07:16] LABS: #Eosinphils 0.1 thou/uL (0.0-0.7); #Monocytes 0.4 thou/uL (0.11-0.59); #Neutrophils 3.8 thou/uL (1.40-6.50); %Basophils 0.4 % (0.0-1.0); %Eosinophils 2.6 % (0.0-10.0); Hemoglobin 12.9 g/dL (12.0-16.0); Mean Corpuscular HGB CONC 32.7 g/dL (32.0-36.0); Mean Corpuscular Hemoglobin 29.6 pg (27.0-31.0); Mean Corpuscular Volume 90.6 fL (78.0-98.0); Mean Platelet Volume 7.6 fL (7.4-10.4); Platelet Count 225 thou/uL (130-400); RBC Distribution Width 13.2 % (11.5-14.5); Red Blood Cell (RBC) Count 4.37 mill/uL (4.20-5.40); White Blood Cell (WBC) Count 5.4 thou/uL (4.8-10.8)
[2021-10-01 07:37] LABS: Anion Gap 10 mmol/L (10-20); BUN (Urea Nitrogen) 10 mg/dL (9.8-20.1); Calc. Creatinine Clearance 89 mL/min (70-130); Calcium 8.3 mg/dL (7.8-10.44); Carbon Dioxide 30 mmol/L (23-31); Chloride 104 mmol/L (98-107); Estimated GFR 84; Glucose 93 mg/dL (80-115); Magnesium 2.2 mg/dL (1.6-2.6); Potassium 3.8 mmol/L (3.5-5.1); Sodium 140 mmol/L (136-145)
[2021-10-01] MEDS: Citalopram 20 MG TAB PO SCH (09:04)
[2021-10-01] MEDS: Aspirin Chewable 81 MG TAB PO SCH (09:04)
[2021-10-01] MEDS: carBAMazepine 200 MG TAB PO SCH ×2 (09:04→21:38)
[2021-10-01] MEDS: Metoprolol Tartrate 25 MG TAB PO SCH ×2 (09:04→21:09)
[2021-10-01] MEDS: Famotidine 20 MG TAB PO SCH ×2 (09:05→21:09)
[2021-10-01] MEDS: Enoxaparin Sodium 40 MG/0.4 ML SYRINGE SC SCH (14:26)
[2021-10-01] MEDS: Atorvastatin Calcium 40 MG TAB PO SCH (21:08)
[2021-10-02 03:41] LABS: #Eosinphils 0.2 thou/uL (0.0-0.7); #Lymphocytes 1.2 thou/uL (1.20-3.40); #Monocytes 0.5 thou/uL (0.11-0.59); #Neutrophils 4.8 thou/uL (1.40-6.50); %Basophils 0.6 % (0.0-1.0); %Eosinophils 2.6 % (0.0-10.0); %Lymphocytes 17.3 % (21.0-51.0); %Monocytes 6.8 % (0.0-10.0); %Neutrophils 72.6 % (42.0-75.0); Hemoglobin 13.2 g/dL (12.0-16.0); Mean Corpuscular HGB CONC 33.4 g/dL (32.0-36.0); Mean Corpuscular Hemoglobin 30.2 pg (27.0-31.0); Mean Corpuscular Volume 90.5 fL (78.0-98.0); Platelet Count 233 thou/uL (130-400); RBC Distribution Width 13.1 % (11.5-14.5); Red Blood Cell (RBC) Count 4.38 mill/uL (4.20-5.40); White Blood Cell (WBC) Count 6.6 thou/uL (4.8-10.8)
[2021-10-02 03:58] LABS: Anion Gap 10 mmol/L (10-20); BUN (Urea Nitrogen) 18 mg/dL (9.8-20.1); Calc. Creatinine Clearance 80 mL/min (70-130); Calcium 8.6 mg/dL (7.8-10.44); Carbon Dioxide 29 mmol/L (23-31); Chloride 104 mmol/L (98-107); Estimated GFR 75; Glucose 90 mg/dL (80-115); Magnesium 2.2 mg/dL (1.6-2.6); Potassium 4.3 mmol/L (3.5-5.1); Sodium 139 mmol/L (136-145)
[2021-10-02 05:42] VITALS: BMI 25.7
[2021-10-02] MEDS ORDERED: Heparin 25,000 units/D5W 0 ML ONE (06:40)
[2021-10-02] MEDS ORDERED: Isoproterenol 0.2 MG/1 ML AMP ONE (06:40)
[2021-10-02] MEDS ORDERED: Heparin 10,000 UNITS/ 10 ML VIAL ONE (06:40)
[2021-10-02] MEDS ORDERED: Lidocaine 1% PF 5 ML VIAL ONE ×2 (06:40→08:29)
[2021-10-02] MEDS ORDERED: Midazolam HCl 2 mg/2 ml Vial ONE (07:24)
[2021-10-02] MEDS ORDERED: Propofol 1,000 MG/100 ML VIAL IV ONE (07:24)
[2021-10-02] MEDS ORDERED: fentaNYL Citrate/PF 100 MCG/2 ML SYRINGE ONE (07:24)
[2021-10-02] MEDS ORDERED: Ondansetron PF 4 MG/2 ML Vial ONE (08:29)
[2021-10-02] MEDS ORDERED: Rocuronium Bromide 10 MG/ML (10ML VIAL) ONE (08:29)
[2021-10-02] MEDS ORDERED: Dexamethasone 20 MG/5 ML VIAL ONE (08:29)
[2021-10-02] MEDS ORDERED: Phenylephrine 10 MG/ML VIAL ONE (08:29)
[2021-10-02] MEDS ORDERED: PROPOFOL 200 MG/20 ML VIAL ONE (08:29)
[2021-10-02] MEDS: Enoxaparin Sodium 40 MG/0.4 ML SYRINGE SC SCH (09:00)
[2021-10-02] MEDS: Famotidine 20 MG TAB PO SCH ×2 (09:00→21:25)
[2021-10-02] MEDS: Metoprolol Tartrate 25 MG TAB PO SCH ×2 (09:00→21:26)
[2021-10-02] MEDS ORDERED: SUGAMMADEX SODIUM 200 MG/2 ML VIAL ONE (09:45)
[2021-10-02] MEDS: Aspirin Chewable 81 MG TAB PO SCH (12:55)
[2021-10-02] MEDS: Citalopram 20 MG TAB PO SCH (12:57)
[2021-10-02] MEDS: carBAMazepine 200 MG TAB PO SCH ×2 (12:57→21:25)
[2021-10-02] MEDS: Atorvastatin Calcium 40 MG TAB PO SCH (21:25)
[2021-10-03 04:47] LABS: #Eosinphils 0.1 thou/uL (0.0-0.7); #Lymphocytes 1.1 thou/uL (1.20-3.40); #Monocytes 0.9 thou/uL (0.11-0.59); %Basophils 0.2 % (0.0-1.0); %Lymphocytes 10.5 % (21.0-51.0); %Monocytes 8.8 % (0.0-10.0); %Neutrophils 79.6 % (42.0-75.0); Hemoglobin 12.4 g/dL (12.0-16.0); Mean Corpuscular HGB CONC 32.9 g/dL (32.0-36.0); Mean Corpuscular Hemoglobin 29.9 pg (27.0-31.0); Mean Corpuscular Volume 90.9 fL (78.0-98.0); Mean Platelet Volume 8.2 fL (7.4-10.4); Platelet Count 259 thou/uL (130-400); RBC Distribution Width 13.3 % (11.5-14.5); Red Blood Cell (RBC) Count 4.16 mill/uL (4.20-5.40)
[2021-10-03 05:04] LABS: Anion Gap 14 mmol/L (10-20); BUN (Urea Nitrogen) 21 mg/dL (9.8-20.1); Calc. Creatinine Clearance 68 mL/min (70-130); Carbon Dioxide 24 mmol/L (23-31); Chloride 105 mmol/L (98-107); Estimated GFR 66; Glucose 121 mg/dL (80-115); Magnesium 2.2 mg/dL (1.6-2.6); Potassium 3.9 mmol/L (3.5-5.1); Sodium 139 mmol/L (136-145)
[2021-10-03] MEDS: Aspirin Chewable 81 MG TAB PO SCH (08:54)
[2021-10-03] MEDS: Enoxaparin Sodium 40 MG/0.4 ML SYRINGE SC SCH (08:54)
[2021-10-03] MEDS: Metoprolol Tartrate 25 MG TAB PO SCH (08:54)
[2021-10-03] MEDS: Citalopram 20 MG TAB PO SCH (08:55)
[2021-10-03] MEDS: carBAMazepine 200 MG TAB PO SCH (08:55)
[2021-10-03] MEDS: Famotidine 20 MG TAB PO SCH (09:05)
[2021-10-03 11:46] VITALS: BP 116/59; TEMP 98.4
== END 2021-10-03 13:00 | disposition home or self-care (01) | DRG 273 ==
LOC: ERS 09:25 → 2NO 12:59 → CCU 09-30 13:29 → 2NO 10-02 19:33
PROVIDERS: ADMIT Internal Medicine; ATTEND Internal Medicine
PROC: 4A023N7 Measurement of Cardiac Sampling and Pressure, Left Heart, Percutaneous Approach (ICD-10-PCS; 2021-09-28)
PROC: B2111ZZ Fluoroscopy of Multiple Coronary Arteries using Low Osmolar Contrast (ICD-10-PCS; 2021-09-28)
PROC: 02583ZZ Destruction of Conduction Mechanism, Percutaneous Approach (ICD-10-PCS; principal; 2021-10-02)
PROC: 02K83ZZ Map Conduction Mechanism, Percutaneous Approach (ICD-10-PCS; 2021-10-02)
DX: I47.2 Ventricular tachycardia (principal); I21.A1 Myocardial infarction type 2; G40.909 Epilepsy, unspecified, not intractable, without status epilepticus; F41.9 Anxiety disorder, unspecified; I45.6 Pre-excitation syndrome; F32.5 Major depressive disorder, single episode, in full remission; I48.0 Paroxysmal atrial fibrillation; I25.10 Atherosclerotic heart disease of native coronary artery without angina pectoris; I08.1 Rheumatic disorders of both mitral and tricuspid valves; Z20.822 Contact with and (suspected) exposure to COVID-19; Z79.82 Long term (current) use of aspirin; Z79.899 Other long term (current) drug therapy; Z90.710 Acquired absence of both cervix and uterus; Z98.890 Other specified postprocedural states
CPT/HCPCS: 36415; 36416; 71045; 80048; 80053; 80061; 83690; 83735; 84443; 84484; 85025; 85347; 93005; 93010; 93306; 93458; 93621; 93623; 93653; 93662; 94760; 99152; 99153; C1760; C1769; C1884; C1894; J0153; J0583; J1100; J1644; J1650; J2001; J2250; J2370; J2405; J2704; J2720; J3010; J7050; Q0162; U0002

== ENCOUNTER 2021-12-20 13:27 | Outpatient (CLI) | payer OTHER | END 2021-12-20 13:28 | disposition home or self-care (01) | LOC: BICMAMMO 13:27 | PROVIDERS: ATTEND Student in an Organized Health Care Education/Training Program | DX: Z13.820 Encounter for screening for osteoporosis (principal); M85.89 Other specified disorders of bone density and structure, multiple sites | CPT/HCPCS: 77080 ==

== ENCOUNTER 2021-12-25 14:26 | Outpatient (CLI) | payer OTHER | END 2021-12-25 14:27 | disposition home or self-care (01) | LOC: ULT 14:26 | PROVIDERS: ATTEND Student in an Organized Health Care Education/Training Program | DX: R22.1 Localized swelling, mass and lump, neck (principal) | CPT/HCPCS: 76999 ==

== ENCOUNTER 2022-02-06 08:09 | Outpatient (CLI) | payer OTHER ==
[2022-02-06] MEDS ORDERED: Iopamidol 370 76% 100 ML VIAL ONE (13:23)
== END 2022-02-06 08:10 | disposition home or self-care (01) ==
LOC: CT 08:09
PROVIDERS: ATTEND Student in an Organized Health Care Education/Training Program
DX: K11.5 Sialolithiasis (principal)
CPT/HCPCS: 70491; Q9967

== ENCOUNTER 2022-05-31 11:23 | Emergency (ER) | payer OTHER ==
[2022-05-31] MEDS ORDERED: Tranexamic Acid 1,000 MG/10 ML VIAL ONE (12:21)
== END 2022-05-31 12:12 | disposition home or self-care (01) ==
LOC: ERS 11:23
DX: B37.2 Candidiasis of skin and nail (principal)
CPT/HCPCS: 99283

== ENCOUNTER 2022-11-09 05:54 | Day surgery (SDC) | payer OTHER ==
[2022-11-08 11:54] VITALS: BMI 28.2
[2022-11-09] MEDS ORDERED: Midazolam HCl 2 mg/2 ml Vial ONE (07:31)
[2022-11-09] MEDS ORDERED: PROPOFOL 200 MG/20 ML VIAL ONE (08:11)
== END 2022-11-09 09:33 | disposition home or self-care (01) ==
LOC: SDC 05:54
PROVIDERS: ATTEND Internal Medicine
PROC: 0DJD8ZZ Inspection of Lower Intestinal Tract, Via Natural or Artificial Opening Endoscopic (ICD-10-PCS; principal; 2022-11-09)
DX: Z12.11 Encounter for screening for malignant neoplasm of colon (principal); R19.8 Other specified symptoms and signs involving the digestive system and abdomen; K62.3 Rectal prolapse; K57.30 Diverticulosis of large intestine without perforation or abscess without bleeding; Z86.010 Personal history of colon polyps; F41.9 Anxiety disorder, unspecified; F32.A Depression, unspecified; E78.00 Pure hypercholesterolemia, unspecified; Z90.710 Acquired absence of both cervix and uterus; Z90.81 Acquired absence of spleen; Z79.899 Other long term (current) drug therapy
CPT/HCPCS: J2250; J2704

== ENCOUNTER 2023-01-06 16:08 | Emergency (ER) | payer OTHER ==
[2023-01-06 17:11] LABS: #Eosinphils 0.1 thou/uL (0.0-0.7); #Monocytes 0.5 thou/uL (0.11-0.59); #Neutrophils 5.1 thou/uL (1.40-6.50); %Basophils 0.3 % (0.0-1.0); %Lymphocytes 12.5 % (21.0-51.0); %Monocytes 8.1 % (0.0-10.0); %Neutrophils 76.6 % (42.0-75.0); Hematocrit 38.2 % (36.0-47.0); Hemoglobin 12.2 g/dL (12.0-16.0); Mean Corpuscular HGB CONC 31.9 g/dL (32.0-36.0); Mean Corpuscular Hemoglobin 28.7 pg (27.0-31.0); Mean Corpuscular Volume 89.9 fl (78.0-98.0); Platelet Count 289 10x3/uL (130-400); RBC Distribution Width 14.6 % (11.5-14.5); Red Blood Cell (RBC) Count 4.25 mill/uL (4.20-5.40); White Blood Cell (WBC) Count 6.6 10x3/uL (4.8-10.8)
[2023-01-06 17:35] LABS: ALT (SGPT) 26 U/L (8-55); AST (SGOT) 27 U/L (5-34); Albumin 3.8 g/dL (3.4-4.8); Alkaline Phosphatase 115 U/L (40-110); Anion Gap 13 mmol/L (10-20); BUN (Urea Nitrogen) 13 mg/dL (9.8-20.1); Bilirubin, Total 0.2 mg/dL (0.2-1.2); Calc. Creatinine Clearance 0 mL/min (70-130); Calcium 8.6 mg/dL (7.8-10.44); Carbon Dioxide 22 mmol/L (23-31); Chloride 107 mmol/L (98-107); Estimated GFR 73; Globulin 2.2 g/dL (2.4-3.5); Glucose 70 mg/dL (80-115); Potassium 4.3 mmol/L (3.5-5.1); Sodium 138 mmol/L (136-145)
[2023-01-06 17:37] LABS: Troponin I Less than 0.010 ng/mL (< 0.028)
[2023-01-06 20:44] LABS: Troponin I Less than 0.010 ng/mL (< 0.028)
== END 2023-01-06 21:17 | disposition home or self-care (01) ==
LOC: ERS 16:08
DX: R07.89 Other chest pain (principal)
CPT/HCPCS: 36415; 70450; 71045; 80053; 84484; 85025; 85379; 93005

== ENCOUNTER 2023-04-04 12:30 | Inpatient (IN) | payer OTHER ==
[2023-04-04 13:12] VITALS: BMI 29.0
[2023-04-09] MEDS ORDERED: Lidocaine 1% MPF 2 ML VIAL ONE (06:36)
[2023-04-09] MEDS ORDERED: cefOXitin 2 GM VIAL ONE ×2 (06:36→10:00)
[2023-04-09] MEDS ORDERED: Sodium Chloride 0.9% 100 ML ONE (06:36)
[2023-04-09] MEDS ORDERED: Ketorolac Tromethamine 30 MG (1 mL) VIAL ONE ×2 (06:36→12:16)
[2023-04-09] MEDS ORDERED: Acetaminophen 500 MG TAB ONE (06:36)
[2023-04-09] MEDS ORDERED: Lidocaine 1% PF 5 ML VIAL ONE ×2 (07:09→07:44)
[2023-04-09] MEDS ORDERED: Dexmedetomidine 200 MCG/2 ML VIAL ONE (07:09)
[2023-04-09] MEDS ORDERED: fentaNYL PF 100 MCG/2 ML SYRINGE ONE (07:10)
[2023-04-09] MEDS ORDERED: Midazolam HCl 2 mg/2 ml Vial ONE (07:10)
[2023-04-09] MEDS ORDERED: EPINEPHrine 1 MG/ML VIAL ONE (07:17)
[2023-04-09] MEDS ORDERED: Lidocaine 1% (PF) 30 ML VIAL ONE (07:17)
[2023-04-09] MEDS ORDERED: Ropivacaine 0.5% HCl/PF (150 MG/30 ML VIAL) ONE (07:20)
[2023-04-09] MEDS ORDERED: Ropivacaine 2% HCl/PF (20 MG/10 ML VIAL) ONE (07:20)
[2023-04-09] MEDS ORDERED: Rocuronium Bromide 10 MG/ML (10ML VIAL) ONE (07:44)
[2023-04-09] MEDS ORDERED: Dexamethasone 4 mg/ml Vial ONE (07:44)
[2023-04-09] MEDS ORDERED: PROPOFOL 20 ML ONE (07:44)
[2023-04-09] MEDS ORDERED: Ondansetron PF 4 MG/2 ML Vial ONE (07:44)
[2023-04-09] MEDS ORDERED: ePHEDrine Sulfate 50 MG/10 ML VIAL ONE (09:30)
[2023-04-09] MEDS ORDERED: SUGAMMADEX SODIUM 200 MG/2 ML VIAL ONE (10:44)
[2023-04-09] MEDS ORDERED: Ondansetron HCl/PF 4 MG/2 ML Vial IVP PRN (11:29)
[2023-04-09] MEDS ORDERED: Promethazine HCl 25 MG/ML VIAL IM PRN ×2 (11:29→11:54)
[2023-04-09] MEDS ORDERED: Ipratropium/Albuterol 3 ML NEB NEB PRN (11:54)
[2023-04-09] MEDS ORDERED: hydrALAZINE 20 MG/ML VIAL SLOW IVP PRN (11:54)
[2023-04-09] MEDS ORDERED: Morphine 2 MG/ML VIAL SLOW IVP PRN (11:54)
[2023-04-09] MEDS ORDERED: Furosemide 20 MG TAB PO PRN (11:54)
[2023-04-09] MEDS: Ketorolac Tromethamine 30 MG (1 mL) VIAL IVP SCH (14:06)
[2023-04-09] MEDS: Metoprolol Tartrate 25 MG TAB PO SCH ×2 (14:41→21:35)
[2023-04-09] MEDS: carBAMazepine 200 MG TAB PO SCH ×2 (14:41→21:34)
[2023-04-09] MEDS: Famotidine/PF 20 mg/2ml Vial SLOW IVP SCH ×2 (14:42→21:36)
[2023-04-09] MEDS: Citalopram 20 MG TAB PO SCH (14:42)
[2023-04-09] MEDS: Famotidine 20 MG TAB PO SCH ×2 (15:16→21:35)
[2023-04-09] MEDS: D5 1/2 NS w/20 mEq KCL 1,000 ML IV SCH (16:09)
[2023-04-09] MEDS: Morphine 4 MG/ML VIAL SLOW IVP PRN (16:10)
[2023-04-09] MEDS: Atorvastatin Calcium 40 MG TAB PO SCH (21:34)
[2023-04-09] MEDS: Enoxaparin 40 MG (0.4 mL) SYRINGE SC SCH (21:35)
[2023-04-09] MEDS: Ondansetron PF 4 MG/2 ML Vial IVP PRN (22:14)
[2023-04-10 04:58] LABS: #Monocytes 0.9 thou/uL (0.11-0.59); #Neutrophils 6.2 thou/uL (1.40-6.50); %Basophils 0.1 % (0.0-1.0); %Neutrophils 79.6 % (42.0-75.0); Hemoglobin 9.8 g/dL (12.0-16.0); Mean Corpuscular HGB CONC 31.6 g/dL (32.0-36.0); Mean Corpuscular Hemoglobin 27.5 pg (27.0-31.0); Mean Corpuscular Volume 86.8 fl (78.0-98.0); Platelet Count 238 10x3/uL (130-400); RBC Distribution Width 15.3 % (11.5-14.5); Red Blood Cell (RBC) Count 3.57 mill/uL (4.20-5.40); White Blood Cell (WBC) Count 7.7 10x3/uL (4.8-10.8)
[2023-04-10 06:05] LABS: Anion Gap 7 mmol/L (10-20); BUN (Urea Nitrogen) 10 mg/dL (9.8-20.1); Calc. Creatinine Clearance 90 mL/min (70-130); Calcium 7.8 mg/dL (7.8-10.44); Carbon Dioxide 25 mmol/L (23-31); Chloride 108 mmol/L (98-107); Estimated GFR 83; Glucose 122 mg/dL (80-115); Potassium 4.1 mmol/L (3.5-5.1); Sodium 136 mmol/L (136-145)
[2023-04-10] MEDS: D5 1/2 NS w/20 mEq KCL 1,000 ML IV SCH (09:55)
[2023-04-10] MEDS: Citalopram 20 MG TAB PO SCH (09:55)
[2023-04-10] MEDS: HYDROcodone/Acetaminophen 7.5/325 mg Tablet PO PRN (10:03)
[2023-04-10] MEDS: FLU VACC QS2023(65UP)/MF59C/PF 60 MCG/0.5 ML SYRINGE IM ONE (21:56)
[2023-04-10] MEDS: tiZANidine HCl 4 MG TAB PO PRN (22:01)
[2023-04-11] MEDS: D5 1/2 NS w/20 mEq KCL 1,000 ML IV SCH (09:35)
[2023-04-12 05:39] LABS: #Eosinphils 0.2 thou/uL (0.0-0.7); #Monocytes 0.5 thou/uL (0.11-0.59); #Neutrophils 3.3 thou/uL (1.40-6.50); %Basophils 0.2 % (0.0-1.0); %Eosinophils 3.4 % (0.0-10.0); %Lymphocytes 16.5 % (21.0-51.0); %Monocytes 10.1 % (0.0-10.0); %Neutrophils 69.4 % (42.0-75.0); Hematocrit 30.7 % (36.0-47.0); Hemoglobin 9.4 g/dL (12.0-16.0); Mean Corpuscular HGB CONC 30.6 g/dL (32.0-36.0); Mean Corpuscular Hemoglobin 27.2 pg (27.0-31.0); Mean Platelet Volume 10.1 fL (7.4-10.4); Platelet Count 216 10x3/uL (130-400); RBC Distribution Width 15.2 % (11.5-14.5); Red Blood Cell (RBC) Count 3.45 mill/uL (4.20-5.40); White Blood Cell (WBC) Count 4.7 10x3/uL (4.8-10.8)
[2023-04-12 06:06] LABS: Anion Gap 8 mmol/L (10-20); BUN (Urea Nitrogen) 7 mg/dL (9.8-20.1); Calc. Creatinine Clearance 93 mL/min (70-130); Calcium 8.3 mg/dL (7.8-10.44); Carbon Dioxide 25 mmol/L (23-31); Chloride 109 mmol/L (98-107); Estimated GFR 86; Glucose 101 mg/dL (80-115); Potassium 3.9 mmol/L (3.5-5.1); Sodium 138 mmol/L (136-145)
[2023-04-12] MEDS: Loperamide HCl 2 MG CAP PO SCH (09:22)
[2023-04-12 10:17] VITALS: TEMP 98.3
[2023-04-12 13:30] VITALS: BP 134/77
== END 2023-04-12 15:59 | disposition home or self-care (01) | DRG 331 ==
LOC: SURG A 04-09 06:08 → UNDOADMIN 04-09 06:08 → SCSERHOLD 04-09 06:08 → SURG B 04-09 14:29
PROVIDERS: ADMIT Specialist; ATTEND Specialist
PROC: 0DQP4ZZ Repair Rectum, Percutaneous Endoscopic Approach (ICD-10-PCS; principal; 2023-04-09)
PROC: 0DBN4ZZ Excision of Sigmoid Colon, Percutaneous Endoscopic Approach (ICD-10-PCS; 2023-04-09)
PROC: 3E033XZ Introduction of Vasopressor into Peripheral Vein, Percutaneous Approach (ICD-10-PCS; 2023-04-09)
DX: K62.3 Rectal prolapse (principal); Z79.899 Other long term (current) drug therapy; Z79.82 Long term (current) use of aspirin; E78.00 Pure hypercholesterolemia, unspecified; Z98.890 Other specified postprocedural states; Z90.710 Acquired absence of both cervix and uterus; Z82.49 Family history of ischemic heart disease and other diseases of the circulatory system; Z83.3 Family history of diabetes mellitus
CPT/HCPCS: 36415; 36416; 80048; 85025; 88307; A4314; A4649; J0171; J0694; J1100; J1650; J1885; J2001; J2250; J2270; J2405; J2704; J2795; J3480; J3490

== ENCOUNTER 2023-04-04 12:41 | Outpatient (CLI) | payer OTHER ==
[2023-04-04 14:29] LABS: #Eosinphils 0.1 10x3/uL (0.0-0.5); #Monocytes 0.4 10x3/uL (0.0-1.1); #Neutrophils 2.8 10x3/uL (1.5-8.4); %Basophils 0.3 % (0.0-2.0); %Eosinophils 2.3 % (0.0-6.0); %Monocytes 9.7 % (0.0-10.0); %Neutrophils 70.4 % (40.0-75.0); Hematocrit 35.9 % (34.9-44.5); Hemoglobin 11.4 g/dL (12.0-15.5); Mean Corpuscular HGB CONC 31.8 g/dL (32.0-36.0); Mean Corpuscular Hemoglobin 27.6 pg (27.0-33.0); Mean Corpuscular Volume 86.9 fl (81.6-98.3); Mean Platelet Volume 10.1 fl (7.4-10.4); Platelet Count 289 10x3/uL (150-450); RBC Distribution Width 15.2 % (11.5-14.5); Red Blood Cell (RBC) Count 4.13 10x6/uL (3.90-5.03); White Blood Cell (WBC) Count 3.9 10x3/uL (3.5-10.5)
[2023-04-04 14:38] LABS: Anion Gap 9 mmol/L (10-20); BUN (Urea Nitrogen) 11 mg/dL (9.8-20.1); Calc. Creatinine Clearance 0 mL/min (70-130); Calcium 8.2 mg/dL (7.8-10.44); Carbon Dioxide 26 mmol/L (23-31); Chloride 108 mmol/L (98-107); Estimated GFR 86; Glucose 77 mg/dL (80-115); Potassium 4.9 mmol/L (3.5-5.1); Sodium 138 mmol/L (136-145)
[2023-04-05 03:28] LABS: Hemoglobin A1c 5.7 % (4.0-6.0)
== END 2023-04-04 12:42 | disposition home or self-care (01) ==
LOC: LABBT 12:41
PROVIDERS: ATTEND Specialist
DX: Z01.818 Encounter for other preprocedural examination (principal); K62.3 Rectal prolapse
CPT/HCPCS: 71046; 80048; 83036; 85025; 93005; 93010

== ENCOUNTER 2023-08-27 10:59 | Outpatient (CLI) | payer OTHER | END 2023-08-27 11:00 | disposition home or self-care (01) | LOC: BICMRI 10:59 | PROVIDERS: ATTEND Student in an Organized Health Care Education/Training Program | DX: M51.36 Other intervertebral disc degeneration, lumbar region (principal); M47.816 Spondylosis without myelopathy or radiculopathy, lumbar region; M48.061 Spinal stenosis, lumbar region without neurogenic claudication; M51.25 Other intervertebral disc displacement, thoracolumbar region; M51.37 Other intervertebral disc degeneration, lumbosacral region; M48.07 Spinal stenosis, lumbosacral region; M47.817 Spondylosis without myelopathy or radiculopathy, lumbosacral region | CPT/HCPCS: 72148 ==

== ENCOUNTER 2023-11-21 12:32 | Outpatient (CLI) | payer OTHER | END 2023-11-21 12:33 | disposition home or self-care (01) | LOC: BICCT 12:32 | PROVIDERS: ATTEND Student in an Organized Health Care Education/Training Program | DX: R42 Dizziness and giddiness (principal) | CPT/HCPCS: 70450 ==

== ENCOUNTER 2024-01-02 11:26 | Outpatient (CLI) | payer OTHER | END 2024-01-02 11:27 | disposition home or self-care (01) | LOC: BICMAMMO 11:26 | PROVIDERS: ATTEND Student in an Organized Health Care Education/Training Program | DX: Z12.31 Encounter for screening mammogram for malignant neoplasm of breast (principal) | CPT/HCPCS: 77063; 77067 ==

== ENCOUNTER 2024-10-09 08:43 | Outpatient (CLI) | payer OTHER ==
[2024-10-09] MEDS ORDERED: Barium Sulfate 96% 176 GM BOT (xray ONLY) ONE (08:59)
[2024-10-09] MEDS ORDERED: E-Z-HD 98% W/W 340GM BOT (x-ray ONLY) ONE (08:59)
== END 2024-10-09 08:44 | disposition home or self-care (01) ==
LOC: RAD 08:43
PROVIDERS: ATTEND Specialist
DX: K44.9 Diaphragmatic hernia without obstruction or gangrene (principal)
CPT/HCPCS: 74246